=== PATIENT | male | born 1960 | race Caucasian/White ===

== ENCOUNTER → 2017-07-18 | Day surgery (SDC) | payer BC ==
[~2017-07-18] MED LIST: ACETAMINOPHEN 1000 MG/100 ML 100 ML IV ONE; ASPI81TA82 PO; BUPIVACAINE/EPINEPHRINE 0.5% PF 30 ML VIAL ONE; FISH500C PO; KETOROLAC TROMETHAMINE 30 MG/ML (IVP) VIAL IV PUSH ONE; LACTATED RINGER'S 1000 ML INJ 1,000 ML ONE; LAMO200T PO; LORA-474 PO; MIDAZOLAM HCL 2 MG/2 ML VIAL ONE; ONDANSETRON HCL 4 MG/2 ML VIAL IV PUSH ONE; PROPOFOL 200 MG/20 ML AMP IV ONE; REME30TA PO; ceFAZolin 2 GM PREMIX 50 ML ONE
--- NOTE | 2017-07-18 16:22 | PD.OP ---
cc: Lawrence Jasso MD Operative Report Date of Surgery: July 18, 2017 Preoperative Diagnosis: LIH, MARCELLUS Postoperative Diagnosis: Left indirect and direct inguinal hernias, small umbilical hernia Procedure: Laparoscopic repair left inguinal hernia with mesh, umbilical hernia repair Anesthesia: General Surgeon: Lawrence Jasso [facility] Supervisor(s): ORI Gates Operation and Findings: This procedure was assisted by my nurse practitioner. The skill set of an [employer] was medically necessary to provide improved efficiency and safety in the completion of procedure. engineering technology instructor was at the back table providing appropriate instrumentation while the nurse practitioner directly assisted me through the entirety of the procedure. Indications for procedure Pleasant 56-year-old gentleman recently finished a half iron man and developed pain associated with the known left inguinal hernia. And incidentally discovered umbilical hernia. Intraoperative findings Left direct and indirect inguinal hernias. Tiny umbilical hernia. Estimated blood loss less than 2 mL. Description of procedure in detail The patient was identified as Tremaine Pinto, taken to the operating room and placed in a supine position. Sequential compression device were placed on bilateral lower extremities. Following induction of adequate general anesthesia the patient's lower abdomen was prepped and draped in the usual sterile fashion with Betadine. A timeout procedure was performed. Following completion timeout procedure everyone's satisfaction within the room, local anesthetic was infiltrated around the umbilicus. A small transverse infraumbilical incision was carried out with a scalpel and the umbilical skin was lifted off herniated preperitoneal fat. The umbilical hernia defect was less than 1 cm in size. The preperitoneal fat was reduced. The anterior rectus fascia on the left side was incised its medial border a preperitoneal plane was developed posterior the rectus muscle directed towards the pubic symphysis. With the patient in slight Trendelenburg position the preperitoneal dissecting balloon was placed in the preperitoneal space and under direct laparoscopic view inflated to a total of 25 pumps. This allowed application pubic symphysis, left side Jose R's ligament inferior epigastric vessels, and direct hernia pseudo-sac. The preperitoneal dissecting balloon was desufflated removed for the preperitoneal space and the structural balloon trocar was placed in the preperitoneal space, its balloon inflated and CO2 insufflation to level of 11 mmHg ensued. 2 infraumbilical midline [address] in the preperitoneal space under direct laparoscopic view after incision and skin with a scalpel. Attention was turned to the left side. Blunt graspers were used to reduce incarcerated preperitoneal fat from the direct hernia pseudo-sac. Blunt dissection lateral and posterior the spermatic cord was performed. Adherent peritoneum was reduced to the base of spermatic cord. Spermatic cord lipomatous material was reduced from the inguinal canal. Photograph was taken to both the indirect and direct hernia defects. The direct hernia pseudo-sac was tacked to the anterior Jose R's ligament using a tacking device. 4 x 6" piece of atrium Prolite mesh was cut with an anterolateral slit placed around the spermatic cord and tacked to approximate the anterolateral slit and on the inferior lateral border Jose R's ligament. A 2 x 6" piece of the mesh was then placed across the anterolateral slit and help position using the tacking device superior lateral inferior medial and superior medial. The graft was taken to the completed repair. Remaining local anesthetic was placed in the preperitoneal space. Trochars were removed under direct visualization. During desufflation of the preperitoneal space inferolateral mesh was held against the abdominal wall. There is no evidence of bleeding from trocar sites. The infraumbilical port was removed. The anterior rectus fascial incision was closed with running 2-0 Vicryl suture. Attention was then turned to repair of the umbilical hernia. Two 0 Prolene sutures were used to approximate the umbilical hernia defect in inverted fashion. The umbilicus was reformed with 2 interrupted 2-0 Vicryl sutures. 2-0 Vicryl was placed in deep dermis and subcutaneous tissue in the infraumbilical incision. Skin incisions were then approximated with 4-0 Monocryl subcuticular sutures. Dressings were applied with Mastisol half-inch brown Steri-Strips. Gauze and Tegaderm were placed over the umbilicus. The patient tolerated the procedure without apparent complication. Sponge needle and instrument counts were correct at the end of the case. The patient was transported to PACU in stable condition. Lawrence Jasso MD July 18, 2017 16:22
== END | disposition home or self-care (01) ==
LOC: ESDC 13:54
PROVIDERS: ATTEND Surgery Trauma Surgery
DX: K40.90 Unilateral inguinal hernia, without obstruction or gangrene, not specified as recurrent (principal); K42.9 Umbilical hernia without obstruction or gangrene
CPT/HCPCS: 00750; 00840; 49585; 49650; C1727; C1781; J0131; J0690; J1885; J2250; J2405; J3010; J7120